=== PATIENT | male | born 1960 | race American Indian/Alaskan Native ===

== ENCOUNTER 2017-04-12 12:59 | Emergency (ER) | payer SELFPAY ==
[2017-04-12 13:13] VITALS: BP 164/107
== END 2017-04-12 13:10 | disposition left against medical advice (07) ==
LOC: ED 12:59
DX: R07.9 Chest pain, unspecified (principal); Z53.21 Procedure and treatment not carried out due to patient leaving prior to being seen by health care provider
CPT/HCPCS: 93005; 93010